=== PATIENT | male | born 1975 | race Caucasian/White ===

== ENCOUNTER 2018-06-25 11:06 | Inpatient (IN) | END 2018-07-01 12:25 | disposition home or self-care (01) | DRG 253 ==

== ENCOUNTER 2018-09-04 16:59 | Inpatient (IN) | payer OTHER ==
[~2018-09-04] VITALS: Ht 182.9 cm; Wt 100.5 kg
[~2018-09-04 16:59] MED LIST: AMIT50TA3 PO; CLOP75TA28 PO; CYAN500T46 PO; ENOX100D2 SC; FOLI-49 PO; HYDR-3601 PO; METO-429 PO; PRED10TA PO
[2018-09-04 17:06] VITALS: Ht 182.9 cm; Wt 100.5 kg
[2018-09-05] MEDS ORDERED: ONDANSETRON 4 MG INJ IV STA (00:49)
[2018-09-05] MEDS ORDERED: morphine 4 MG/ML VIAL IV STA (00:49)
[2018-09-05] MEDS ORDERED: METOPROLOL 50 MG TAB PO ONE (01:00)
--- NOTE | 2018-09-05 01:14 | ERD ---
ER Documentation Chief Complaint Chief Complaint sent by for ivc filter removal--needs to be admitted HPI This is a 43-year-old male was brought in by himself after he was sent in by his primary care physician for IVC filter removal. Patient denies any complaints. ROS All systems reviewed and are negative except as per history of present illness. Medications Home Meds Active Scripts Prednisone* (Prednisone*) 10 Mg Tab, 10 MG PO DAILY for 8 Days, #10 TAB Take 20mg for 2 days then 10mg for 3 days then 5 mg for 3 days then stop Prov:LUI NEGRON MD 06/30/18 Clopidogrel Bisulfate (Clopidogrel) 75 Mg Tablet, 75 MG PO DAILY for 30 Days, #30 TAB 10 Refills Prov:LUI NEGRON MD 06/30/18 Hydrocodone Bit-Acetaminophen (Hydrocodone Bit-APAP) 5-325MG Tablet, 2 TAB PO Q4H PRN for SEVERE PAIN LEVEL 7-10 for 7 Days, #30 TAB Prov:LUI NEGRON MD 06/30/18 Enoxaparin Sodium (Enoxaparin Sodium) 100 Mg/1 Ml Syringe, 100 MG SC Q12 for 30 Days, #60 SYR 6 Refills Prov:LUI NEGRON MD 06/30/18 Folic Acid* (Folic Acid*) 1 Mg Tablet, 1 MG PO DAILY for 30 Days, #30 TAB Prov:WAGNER SOTOAlber Krzysztof 05/08/18 Cyanocobalamin* (Vitamin B12*) 500 Mcg Tab, 1000 MCG PO DAILY for 30 Days, #30 T AB Prov:CHARLESWAGNERCox BransonKrzysztof 05/08/18 Metoprolol Tartrate* (Lopressor*) 50 Mg Tab, 50 MG PO BID for 30 Days, #60 TAB 2 Refills Prov:WAGNER SOTOAlber Krzysztof 05/08/18 Reported Medications Amitriptyline Hcl* (Amitriptyline Hcl*) 50 Mg Tablet, 50 MG PO QHS, #30 TAB 05/03/18 Allergies Allergies: Coded Allergies: No Known Allergy (Unverified , 05/03/18) PMhx/Soc History of Surgery: Yes (IVC filter placement) Anesthesia Reaction: No Hx Neurological Disorder: No Hx Respiratory Disorders: No Hx Cardiac Disorders: Yes (HTN) Hx Psychiatric Problems: No Hx Miscellaneous Medical Probl: Yes (DEPRESSION) Hx Alcohol Use: Yes (occasional drinker) Hx Substance Use: No Hx Tobacco Use: No Smoking Status: Never smoker Physical Exam Vitals Vital Signs Date Temp Pulse Resp B/P (MAP) Pulse Ox O2 O2 Flow FiO2 Time Delivery Rate 09/04/18 98.5 109 20 179/116 96 Room Air 19:48 (137) 09/04/18 98.6 108 18 158/117 96 17:06 (131) Physical Exam Const: No acute distress Head: Atraumatic Eyes: Normal Conjunctiva ENT: Normal External Ears, Nose and Mouth. Neck: Full range of motion. No meningismus. Resp: Clear to auscultation bilaterally Cardio: Regular rate and rhythm, no murmurs Abd: Soft, non tender, non distended. Normal bowel sounds Skin: No petechiae or rashes Back: No midline or flank tenderness Ext: No cyanosis, or edema Neur: Awake and alert Psych: Normal Mood and Affect Results 24 hrs Laboratory Tests Test 09/05/18 00:56 White Blood Count Pending Red Blood Count Pending Hemoglobin Pending Hematocrit Pending Mean Corpuscular Volume Pending Mean Corpuscular Hemoglobin Pending Mean Corpuscular Hemoglobin Concent Pending Red Cell Distribution Width Pending Platelet Count Pending Mean Platelet Volume Pending Current Medications Medications Dose Sig/Hussein Start Time Status Last (Trade) Ordered Route PRN Stop Time Admin Dose Reason Admin Morphine 4 mg ONCE STAT 09/05/18 DC Sulfate IV 00:49 09/05/18 (morphine) 00:50 Ondansetron 4 mg ONCE STAT 09/05/18 DC HCl (Zofran IV 00:49 09/05/18 Inj) 00:50 Metoprolol 50 mg ONCE ONCE 09/05/18 DC Tartrate PO 01:00 09/05/18 (Lopressor) 01:01 Procedures/MDM Medical decision making:: Patient is here essentially for IVC filter removal. He will be admitted to Dr. Walker for CT surgeon's request. Dr. Torres on- call for Dr. Walker made aware Departure Diagnosis: Primary Impression: Left leg DVT Affected thrombotic vein of extremity: unspecified vein of extremity Chronicity: unspecified Qualified Codes: I82.402 - Acute embolism and thrombosis of unspecified deep veins of left lower extremity Condition: MARIANN Branham Sep 05, 2018 01:14
[2018-09-05] MEDS ORDERED: IBUPROFEN 800 MG TAB ONE (01:21)
[2018-09-05] MEDS ORDERED: ENOX150D3 SQ ×2 (02:01→02:10)
[2018-09-05] MEDS ORDERED: THIA100T10 PO (02:10)
[2018-09-05 04:40] VITALS: BP 159/113; PULSE 75; RESP 20
[2018-09-05] MEDS ORDERED: DEXTROSE 5%-0.45% NACL 1,000 ML IV SCH (06:30)
[2018-09-05] MEDS: morphine SULFATE/PF (2 MG/2 ML) SYG IV PRN ×2 (06:56→11:15)
[2018-09-05] MEDS ORDERED: morphine SULFATE/PF (2 MG/2 ML) SYG IV PRN (07:00)
[2018-09-05 08:17] VITALS: BP 126/77; PULSE 83; RESP 18
--- NOTE | 2018-09-05 08:51 | HP ---
DATE OF ADMISSION: 09/05/2018 CHIEF COMPLAINT: Lower extremity deep vein thrombosis. HISTORY OF PRESENT ILLNESS: This is a 43-year-old male with past medical history of inherited thromb ophilia, history of deep venous thrombosis and pulmonary embolism, currently on lifelong anticoagulat ion, who presents to [facility] for IVC filter removal. The patient apparently arnulfo es in [place] and flew from [place] to [place] for evaluation by vascular surgeon, Dr. Orlando. The patient recently had a deep vein thrombosis and pulmonary embolism that necessitated a thrombecto my and IVC filter placement. This was done approximately 2 months ago. The patient now is presentin for removal of IVC filter. He currently denies any hemoptysis, hematemesis, or hematochezia. PAST MEDICAL HISTORY: The patient has a history of inherited thrombophilia, history of deep vein thr ombosis, history of pulmonary embolism. PAST SURGICAL HISTORY: Status post IVC filter placement, status post thrombectomy. FAMILY HISTORY: No family history of kidney disease. SOCIAL HISTORY: He does not drink, smoke or do drugs. MEDICATIONS: The patient's medications have been reviewed. REVIEW OF SYSTEMS: A 14-point review of systems conducted. Pertinent positives stated in history of present illness, otherwise negative. PHYSICAL EXAMINATION: VITAL SIGNS: Blood pressure is 126/77, respirations 18, pulse 83, temperature 98.0. HEENT: Head is normocephalic. Pupils are reactive to light. NECK: Supple. HEART: Regular rate. LUNGS: Show diminished breath sounds at the base. ABDOMEN: Soft. Positive umbilical hernia. No rebound or guarding. EXTREMITIES: Negative for clubbing, cyanosis. The patient's left lower extremity is mildly swollen, noted varicose veins. No edema. NEUROLOGIC: No focal deficits. LABORATORY DATA: Shows white count 9.4, hemoglobin 15.0, platelet count 293. Sodium 136, potassium 3.9, BUN 8, creatinine 0.66. AST, ALT is 178 and 182. ASSESSMENT AND PLAN: This is a 43-year-old male who presents with: 1. History of deep venous thrombosis and pulmonary embolism. The patient is status post IVC filter placement and recent thrombectomy. Plan is for evaluation with vascular surgery for IVC removal. We will continue to monitor. The patient is currently n.p.o. pending surgery. 2. Umbilical hernia. We will place a general surgery consult for evaluation. Continue to monitor. 3. Inherited thrombophilia. The patient is on lifelong anticoagulation of Lovenox 115 mEq twice sean ly. We will continue. 4. Hypertension. Continue Lopressor. 5. Chronic pain syndrome. Continue [place]. 6. Gastrointestinal and deep venous thrombosis prophylaxis. We will continue Lovenox and Pepcid. 7. Transaminitis, likely secondary to fatty liver. Continue to monitor. 8. Hypertension. Continue current blood pressure regimen. 9. Peripheral vascular disease with history of bypass surgery. Continue Plavix. Please note I spent additional 30 minutes of [id number] time discussing advance directives code sta tus. The patient is FULL CODE. Dictated By: [place] ALCALA DO NR/NTS Conf#: [id number] DID#: [id number] CC: GAYLE BUCKNER MD; NABIL BUCKNER DO;*EndCC*
[2018-09-05] MEDS: METOPROLOL 50 MG TAB PO SCH ×2 (09:00→15:50)
[2018-09-05] MEDS: CLOPIDOGREL 75 MG TAB PO SCH ×2 (09:00→15:54)
[2018-09-05] MEDS: CYANOCOBALAMIN 500 MCG TAB PO SCH (09:00)
[2018-09-05] MEDS ORDERED: ENOXAPARIN 80 MG/0.8 ML SYG SC SCH (09:00)
[2018-09-05] MEDS ORDERED: ENOXAPARIN 100 MG/ML SYG SC SCH (09:00)
[2018-09-05] MEDS ORDERED: predniSONE 10 MG TAB PO SCH (09:00)
[2018-09-05] MEDS: FOLIC ACID 1 MG TAB PO SCH (09:00)
[2018-09-05] MEDS: THIAMINE 100 MG TAB PO SCH (09:00)
--- NOTE | 2018-09-05 11:36 | CONS ---
Date/Time of Note Date/Time of Note DATE: 09/05/18 TIME: 10:58 Assessment/Plan Assessment/Plan Assessment/Plan 1. Umbilical and bilateral groin hernias: reducible but tender and frequently painful -surgical repair: discussed with patient and he is electing to have outpatient surgery- we will schedule -encourage weight loss -avoid activities that increase intra-abdominal pressure -consider abdominal binder 2. History of deep venous thrombosis and pulmonary embolism: s/p IVC filter placement and recent thrombectomy -vascular surgery eval for IVC removal 3. Inherited thrombophilia on lifelong anticoagulation of Lovenox 115 mEq twice daily -med management 4. Hypertension -med mgnt 5. Chronic pain syndrome -pain management 6. Transaminitis: recent us: Fatty change of the liver and Mild hepatomegaly -highly encourage weight loss -trend -consider hep panel 7. Peripheral vascular disease with history of bypass surgery -vascular optimization 8. Obesity: bmi: 30 -diet and exercise optimization -encourage weight loss Thank you. Patient seen and examined in collaboration with Dr. Nicolas Torres. Result Diagram: 09/05/18 0056 09/05/18 0056 Results 24hrs Laboratory Tests Test 09/05/18 00:56 09/05/18 03:10 White Blood Count 9.4 # Red Blood Count 4.04 L Hemoglobin 15.0 Hematocrit 43.2 Mean Corpuscular Volume 106.9 H Mean Corpuscular Hemoglobin 37.1 H Mean Corpuscular Hemoglobin Concent 34.7 Red Cell Distribution Width 16.7 H Platelet Count 293 Mean Platelet Volume 9.8 Immature Granulocytes % 3.400 H Neutrophils % 78.8 H Lymphocytes % 6.7 L Monocytes % 8.2 Eosinophils % 1.9 Basophils % 1.0 Nucleated Red Blood Cells % 0.0 Immature Granulocytes # 0.320 H Neutrophils # 7.5 Lymphocytes # 0.6 L Monocytes # 0.8 Eosinophils # 0.2 Basophils # 0.1 Nucleated Red Blood Cells # 0.0 Prothrombin Time 11.9 Prothrombin Time Ratio 0.9 INR International Normalized Ratio 0.87 Activated Partial Thromboplast Time 28.3 Sodium Level 136 Potassium Level 3.9 Chloride Level 96 L Carbon Dioxide Level 27 Anion Gap 13 Blood Urea Nitrogen 8 Creatinine 0.66 Est Glomerular Filtrat Rate mL/min > 60 Glucose Level 110 Calcium Level 8.9 Total Bilirubin 0.9 Direct Bilirubin 0.00 Indirect Bilirubin 0.9 Aspartate Amino Transf (AST/SGOT) 178 H Alanine Aminotransferase (ALT/SGPT) 182 H Alkaline Phosphatase 224 H Total Protein 7.7 Albumin 4.0 Globulin 3.70 H Albumin/Globulin Ratio 1.08 Lipase 162 Urine Color YELLOW Urine Clarity CLEAR Urine pH 6.0 Urine Specific Datil 1.005 Urine Ketones NEGATIVE Urine Nitrite NEGATIVE Urine Bilirubin NEGATIVE Urine Urobilinogen NEGATIVE Urine Leukocyte Esterase NEGATIVE Urine Hemoglobin NEGATIVE Urine Glucose NEGATIVE Urine Total Protein NEGATIVE Consultation Date/Type/Reason Admit Date/Time Sep 05, 2018 at 00:42 Date of Consultation: Sep 05, 2018 Type of Consult surgical Reason for Consultation umbilical hernia Requesting Provider: CASEY HYLTON MD Hx of Present Illness Juan R Wesley is a 43-year-old man with past medical history of inherited thrombophilia, deep venous thrombosis and pulmonary embolism, currently on lifelong anticoagulation, who presents to [facility] for IVC filter removal by Dr. Gold. He had recently flown in from out of [facility] for Vascular Surgeon evaluation and tx. He recently had a deep vein thrombosis and pulmonary embolism that necessitated a thrombectomy and IVC filter placement, approximately 2 months ago. He now presents for removal of IVC filter. He denies shortness of breath, cp, hemoptysis, hematemesis, or hematochezia, lower extremity pain, fevers, chills. He is also known to have an umbilical hernia. Umbilical hernia is reducible, however, the area is tender and frequently painful. He reports regular bowel function. General surgery was asked to evaluate. 12 point ros was performed and is negative except as stated in hpi. Past Medical History as above Medications Current Medications Dextrose/Sodium Chloride 1,000 ml @ 65 mls/hr [id number] IV Last administered on 09/05/18at 06:31; Admin Dose 65 MLS/HR; Start 09/05/18 at 06:30 Morphine Sulfate (morphine SULFATE (PF)) 2 mg Q4H PRN IV SEVERE PAIN LEVEL 7-10 Last administered on 09/05/18at 06:56; Admin Dose 2 MG; Start 09/05/18 at 07:00 Morphine Sulfate (morphine SULFATE (PF)) 2 mg Q4H PRN IV SEVERE PAIN LEVEL 7- 10; Start 09/05/18 at 07:00 Amitriptyline HCl (Elavil) 50 mg QHS PO ; Start 09/05/18 at 21:00 Cyanocobalamin (Vitamin B12) 1,000 mcg DAILY PO ; Start 09/05/18 at 09:00 Enoxaparin Sodium (Lovenox) 150 mg Q12 SC ; Start 09/05/18 at 09:00 Folic Acid (Folic Acid) 1 mg DAILY PO ; Start 09/05/18 at 09:00 Acetaminophen/ Hydrocodone Bitart ([place] (5/325)) 2 tab Q4H PRN PO SEVERE PAIN LEVEL 7-10; Start 09/05/18 at 09:00 Metoprolol Tartrate (Lopressor) 50 mg BID PO ; Start 09/05/18 at 09:00 Thiamine HCl (Vitamin B1) 100 mg DAILY PO ; Start 09/05/18 at 09:00 Clopidogrel Bisulfate (plaVIX) 75 mg DAILY PO ; Start 09/05/18 at 09:00 Allergies: Coded Allergies: No Known Allergy (Unverified , 05/03/18) Past Surgical History as above Past Surgical Hx: other Family History Significant Family History: no pertinent family hx Social History Alcohol Use: none Smoking Status: Never smoker Drug Use: none Exam/Review of Systems Vital Signs Vitals Vital Signs Date Temp Pulse Resp B/P (MAP) Pulse Ox O2 O2 Flow FiO2 Time Delivery Rate 09/05/18 98.0 83 18 126/77 94 Room Air 08:17 (93) Exam Constitutional: alert, oriented Psych: nl mood/affect; No anxiety Head: normocephalic, atraumatic Eyes: nl conjunctiva, EOMI, nl lids, nl sclera ENMT: nl external ears & nose, nl lips & teeth, mucosa pink and moist Neck: supple, non-tender; No jvd Respiratory: normal air movement; No congested cough, No labored breathing Cardiovascular: regular rate and rhythm, nl pulses; No edema Gastrointestinal: soft, other (umbilical hernia (easily reducible, tender, no periumbilical discoloration)) Genitourinary - Male: nl penis, nl scrotum, other (bilateral inguinal hernia) Musculoskeletal: nl extremities to inspection, nl gait and stance Extremities: normal pulses Neurological: nl mental status, nl speech, nl strength Skin: No rash or lesions Lymph: nl lymph nodes Medications Medications Current Medications Dextrose/Sodium Chloride 1,000 ml @ 65 mls/hr [id number] IV Last administered on 09/05/18at 06:31; Admin Dose 65 MLS/HR; Start 09/05/18 at 06:30 Morphine Sulfate (morphine SULFATE (PF)) 2 mg Q4H PRN IV SEVERE PAIN LEVEL 7-10 Last administered on 09/05/18at 06:56; Admin Dose 2 MG; Start 09/05/18 at 07:00 Morphine Sulfate (morphine SULFATE (PF)) 2 mg Q4H PRN IV SEVERE PAIN LEVEL 7- 10; Start 09/05/18 at 07:00 Amitriptyline HCl (Elavil) 50 mg QHS PO ; Start 09/05/18 at 21:00 Cyanocobalamin (Vitamin B12) 1,000 mcg DAILY PO ; Start 09/05/18 at 09:00 Enoxaparin Sodium (Lovenox) 150 mg Q12 SC ; Start 09/05/18 at 09:00 Folic Acid (Folic Acid) 1 mg DAILY PO ; Start 09/05/18 at 09:00 Acetaminophen/ Hydrocodone Bitart ([place] (5/325)) 2 tab Q4H PRN PO SEVERE PAIN LEVEL 7-10; Start 09/05/18 at 09:00 Metoprolol Tartrate (Lopressor) 50 mg BID PO ; Start 09/05/18 at 09:00 Thiamine HCl (Vitamin B1) 100 mg DAILY PO ; Start 09/05/18 at 09:00 Clopidogrel Bisulfate (plaVIX) 75 mg DAILY PO ; Start 09/05/18 at 09:00 SINDHU RICHARD NP Sep 05, 2018 11:15
[2018-09-05] MEDS ORDERED: MIDAZOLAM 1 MG/ML 2 ML INJ ONE (13:35)
[2018-09-05] MEDS ORDERED: HEPARIN 1000 UNITS/NS (A-LINE) 1,000 ML ONE (13:35)
[2018-09-05] MEDS ORDERED: FENTAnyl 50 MCG/ML VIAL ONE (13:35)
[2018-09-05] MEDS ORDERED: LIDOCAINE 1% (MDV) 20 ML INJ ONE (13:36)
--- NOTE | 2018-09-05 14:00 | OPR ---
Date/Time of Note Date/Time of Note DATE: 09/05/18 TIME: 13:58 Operative Report Procedure Date: Sep 05, 2018 Preoperative Diagnosis DVT status post IVC filter placement Postoperative Diagnosis Same Operation/Procedure Performed Removal of inferior vena cava filter Inferior venacavogram Catheter introduction to the inferior vena cava Interpositions revision of the inferior venacavogram Moderate sedation 1 hour Fluoroscopy Ultrasound guidance into the central vein Surgeon see signature line Skilled Nursing Case Manager no Anesthesia Type: MAC Estimated Blood Loss: minimal Transfusion none Specimen None Grafts/Implants none Complications none Procedure Description Patient was placed supine position prepped and draped in usual sterile fashion using ultrasound guidance access was gained the right internal jugular vein [employer] guidewire was advanced down into the superior vena cava and inferior vena cava the sheath was advanced over the guidewire and inferior venacavogram was done which showed no evidence of any clot around the filter which was at the level of L2 snare was applied into the sheath which grabbed the hook of the filter at the sheath was advanced over the filter which collapsed all the legs of the filter was removed in its entirety x-ray fluoroscopy of the abdomen and chest revealed no evidence of any retained parts of the filter all the legs of the filter but intact were intact upon inspection outside of the body appropriate dressings applied patient tolerated procedure well CASEY HYLTON MD Sep 05, 2018 14:00
[2018-09-05 14:36] VITALS: BP 157/101; PULSE 78; RESP 18
--- NOTE | 2018-09-05 14:55 | CONS ---
DATE OF ADMISSION: 09/05/2018 DATE OF CONSULTATION: REASON FOR CONSULTATION: DVT. HISTORY OF PRESENT ILLNESS: This is a 43-year-old male with a history of left lower extremity DVT, w ho underwent a femorofemoral bypass grafting for the venous drainage and placement of inferior vena c lalit filter. Subsequently, the patient is here for evaluation and removal of IVC filter. PAST MEDICAL HISTORY: Hypertension. PAST SURGICAL HISTORY: Multiple DVT procedures and thrombectomies. ALLERGIES: NONE. SOCIAL HISTORY: No smoking, drinking or drug use. MEDICATION LIST: Reviewed. PHYSICAL EXAMINATION: VITAL SIGNS: Blood pressure is 110/60, pulse is 80, respirations 18. CARDIOVASCULAR: Regular rate and rhythm. Normal S1, S2. No murmurs, gallops or rubs. LUNGS: Clear. ABDOMEN: Soft. EXTREMITIES: Warm. Left lower extremity has more swelling than the right and chronic venous congest ion signs. LABORATORY VALUES: Significant for a hemoglobin of 15, white count is 9.4, platelet count is 293. N ormal coagulation factors. IMPRESSION: Deep venous thrombosis, status post inferior vena cava filter placement. RECOMMENDATIONS: We will proceed with the removal of IVC filter. I discussed with the patient. All questions were answered. Dictated By: CASEY HYLTON MD FM/NTS Conf#: [id number] DID#: [id number] CC: NABIL BUCKNER DO; GAYLE BUCKNER MD;*[facility]*
[2018-09-05] MEDS: HYDROCODONE/APAP (5/325) TAB PO PRN ×2 (15:49→21:25)
[2018-09-05] MEDS: ENOXAPARIN 100 MG/ML SYG SC SCH (15:52)
[2018-09-05 20:32] VITALS: BP 148/91; PULSE 82; RESP 20
[2018-09-05] MEDS ORDERED: AMITRIPTYLINE 50 MG TAB PO SCH (21:00)
[2018-09-06] MEDS: ENOXAPARIN 100 MG/ML SYG SC SCH ×2 (00:52→08:27)
[2018-09-06] MEDS: METOPROLOL 50 MG TAB PO SCH ×2 (01:05→08:24)
[2018-09-06] MEDS: HYDROCODONE/APAP (5/325) TAB PO PRN (01:51)
[2018-09-06 02:22] VITALS: BP 140/85; PULSE 88; RESP 20
[2018-09-06 07:54] VITALS: BP 138/89; PULSE 79; RESP 18
[2018-09-06] MEDS: FOLIC ACID 1 MG TAB PO SCH (08:23)
[2018-09-06] MEDS: THIAMINE 100 MG TAB PO SCH (08:23)
[2018-09-06] MEDS: CYANOCOBALAMIN 500 MCG TAB PO SCH (08:23)
[2018-09-06] MEDS: CLOPIDOGREL 75 MG TAB PO SCH (08:23)
--- NOTE | 2018-09-06 09:19 | DS ---
DATE OF ADMISSION: 09/05/2018 DATE OF DISCHARGE: 09/06/2018 HOSPITAL COURSE: This is a 43-year-old male with a past medical history of inherited thrombophilia, history of DVT, pulmonary embolism who was admitted to [facility] for removal of IV C filter. The patient had IVC filter placed approximately 3 months ago for DVT. He lives in [place]. He flew out from [place] to [facility], was subsequently admitted. The patient wa s seen by Dr. Orlando and IVC filter removed without any complications. The patient also noted to have umbilical hernia, was seen by general surgery, Dr. Anshu Torres with expectation outpatient ifrah crawley for umbilical hernia repair. The patient otherwise has been stable during hospital course and there have been no episodes of chest pain, no nausea, vomiting, no shortness of breath. No bleeding . Currently at this time, the patient will be discharged home where he will follow up with Dr. Anshu branham, as outpatient for possible hernia repair. At the time of discharge, the patient is stable, in no acute distress. FINAL DIAGNOSES: 1. Inherited thrombophilia. 2. History of deep venous thrombosis and pulmonary embolism, status post IVC filter removal. 3. Umbilical hernia. 4. Hypertension. 5. Transaminitis secondary to fatty liver. 6. Peripheral vascular disease with history of bypass. 7. Chronic pain syndrome. Please note at time of discharge patient is stable, no acute distress. FINAL MEDICATIONS: The patient will continue home regimen of medications includin. Amitriptyline. 2. Plavix. 3. Vitamin B12. 4. Lovenox. 5. Folic acid. 6. Metoprolol 7. Thiamine. Please note I spent over 40 minutes time preparing the patient's discharge. Please note, the patient has all his medications. I will give the patient a prescription for Plavix 75 mg daily. Dictated By: IND[place] ALCALA DO NR/NTS Conf#: [id number] DID#: [id number] CC: NABIL TORRES DO;*EndCC*
--- NOTE | 2018-09-06 09:52 | PN ---
Date/Time of Note Date/Time of Note DATE: 09/06/18 TIME: 09:49 Assessment/Plan Lines/Catheters IV Catheter Type (from Nrsg): Peripheral IV Assessment/Plan Assessment/Plan 1. Umbilical and bilateral groin hernias: reducible but tender and frequently painful -surgical repair: discussed with patient and he is electing to have outpatient surgery- we will schedule> patient to follow-up with us outpatient -encourage weight loss -avoid activities that increase intra-abdominal pressure -consider abdominal binder 2. History of deep venous thrombosis and pulmonary embolism: s/p IVC filter placement and recent thrombectomy; status post IVC filter removal -vascular surgery follow-up 3. Inherited thrombophilia on lifelong anticoagulation of Lovenox 115 mEq twice daily -med management 4. Hypertension -med mgnt 5. Chronic pain syndrome -pain management 6. Transaminitis: recent us: Fatty change of the liver and Mild hepatomegaly -highly encourage weight loss -trend -consider hep panel 7. Peripheral vascular disease with history of bypass surgery -vascular optimization 8. Obesity: bmi: 30 -diet and exercise optimization -encourage weight loss Thank you. Patient seen and examined in collaboration with Dr. Nicolas Torres. Subjective 24 Hr Interval Summary Feels well. Status post IVC filter removal yesterday. No fevers, chills, sob, congested cough, cp, palpitations, johnson, dizziness, nausea, vomiting, diarrhea, dysuria. Exam/Review of Systems Vital Signs Vitals Vital Signs Date Temp Pulse Resp B/P (MAP) Pulse Ox O2 O2 Flow FiO2 Time Delivery Rate 09/06/18 97.7 79 18 138/89 93 07:54 (105) 09/05/18 Room Air 20:32 Intake and Output 09/05/18 09/05/18 09/06/18 1515:00 23:00 07:00 IntakeIntake Total 2050 ml 800 ml OutputOutput Total 1200 ml 800 ml BalanceBalance 850 ml 0 ml Exam Free Text/Dictation Constitutional: alert, oriented Psych: nl mood/affect; No anxiety Head: normocephalic, atraumatic Eyes: nl conjunctiva, EOMI, nl lids, nl sclera ENMT: nl external ears & nose, nl lips & teeth, mucosa pink and moist, right neck dressing dry and intact without noted bleeding Neck: supple, non-tender; No jvd Respiratory: normal air movement; No congested cough, No labored breathing Cardiovascular: regular rate and rhythm, nl pulses; No edema Gastrointestinal: soft, other (umbilical hernia (easily reducible, tender, no periumbilical discoloration)) Genitourinary - Male: nl penis, nl scrotum, other (bilateral inguinal hernia) Musculoskeletal: nl extremities to inspection, nl gait and stance Extremities: normal pulses Neurological: nl mental status, nl speech, nl strength Skin: No rash or lesions Lymph: nl lymph nodes Results Result Diagram: 09/05/18 0056 09/05/18 0056 SINDHU RICHARD NP Sep 06, 2018 09:52
[2018-09-06 14:00] VITALS: BP 148/88; PULSE 86; RESP 18
--- NOTE | 2018-09-06 17:52 | PN ---
Date/Time of Note Date/Time of Note DATE: 09/06/18 TIME: 17:52 Assessment/Plan Lines/Catheters IV Catheter Type (from Nrsg): Peripheral IV Assessment/Plan Assessment/Plan DVT SP removal of IVC Filter will resume anticoagulation and Plavix Subjective 24 Hr Interval Summary Constitutional: improved Pain Control: mild Exam/Review of Systems Vital Signs Vitals Vital Signs Date Temp Pulse Resp B/P (MAP) Pulse Ox O2 O2 Flow FiO2 Time Delivery Rate 09/06/18 98.7 86 18 148/88 95 14:00 (108) 09/05/18 Room Air 20:32 Intake and Output 09/05/18 09/05/18 09/06/18 1515:00 23:00 07:00 IntakeIntake Total 2050 ml 800 ml OutputOutput Total 1200 ml 800 ml BalanceBalance 850 ml 0 ml Exam Eyes: nl conjunctiva, EOMI, nl lids, nl sclera ENMT: nl external ears & nose, nl lips & teeth, nl nasal mucosa & septum, mucosa pink and moist Neck: supple, non-tender Respiratory: clear to auscultation, normal air movement Cardiovascular: regular rate and rhythm, nl pulses Gastrointestinal: soft, nl liver, spleen, non-tender Musculoskeletal: nl extremities to inspection, nl gait and stance Results Result Diagram: 09/05/18 0056 09/05/18 0056 CASEY HYLTON MD Sep 06, 2018 17:52
== END 2018-09-06 18:20 | disposition home or self-care (01) | DRG 949 ==
LOC: E/R 16:59 → MS1 09-05 00:42
PROVIDERS: ADMIT Internal Medicine Nephrology; ATTEND Internal Medicine Nephrology
PROC: 06PY3DZ Removal of Intraluminal Device from Lower Vein, Percutaneous Approach (ICD-10-PCS; principal; 2018-09-05 13:30)
DX: Z45.2 Encounter for adjustment and management of vascular access device (principal); D68.69 Other thrombophilia; Z86.718 Personal history of other venous thrombosis and embolism; Z79.01 Long term (current) use of anticoagulants; Z86.711 Personal history of pulmonary embolism; K42.9 Umbilical hernia without obstruction or gangrene; I10 Essential (primary) hypertension; G89.29 Other chronic pain; R74.0 Nonspecific elevation of levels of transaminase and lactic acid dehydrogenase [LDH]; I73.9 Peripheral vascular disease, unspecified; Z98.62 Peripheral vascular angioplasty status; E66.9 Obesity, unspecified; Z68.30 Body mass index [BMI] 30.0-30.9, adult
CPT/HCPCS: 36415; 80053; 81003; 83690; 85025; 85610; 85730; J1644; J1650; J2250; J2270; J2274; J2405; J3010; J7042

== ENCOUNTER 2018-10-30 22:13 | Inpatient (IN) | payer OTHER ==
[~2018-10-30] VITALS: Ht 185.4 cm; Wt 100.0 kg
[~2018-10-30 22:13] MED LIST changes: -ENOX100D2 SC; +ENOX150D3 SQ; -PRED10TA PO; +THIA100T10 PO
[2018-10-30 22:33] VITALS: Ht 185.4 cm; Wt 100.0 kg
[2018-10-31] MEDS ORDERED: HYDROmorphONE 2 MG/ML SYG IV STA ×2 (02:35→02:42)
[2018-10-31] MEDS ORDERED: ONDANSETRON 4 MG INJ IV STA (02:35)
[2018-10-31] MEDS ORDERED: HYDROmorphONE 0.5 MG/0.5 ML SYG IV STA (04:36)
--- NOTE | 2018-10-31 04:39 | ERD ---
ER Documentation Chief Complaint Chief Complaint left foot/lower leg pain, known dvt, advised by to go to er for eval HPI This is a 43-year-old male with left foot and lower leg pain. 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 Recently had IVC filter pulled. On therapeutic Plavix and Lovenox. Spoke to vascular surgeon told him he is having increased pain and was told to come in for evaluation. Denies any chest pain fe vers nausea vomiting palpitations. Denies any shortness of breath. ROS All systems reviewed and are negative except as per history of present illness. Medications Home Meds Active Scripts Clopidogrel Bisulfate (Clopidogrel) 75 Mg Tablet, 75 MG PO DAILY for 30 Days, #30 TAB 10 Refills Prov:LUI NEGRON MD 06/30/18 Hydrocodone Bit-Acetaminophen (Hydrocodone Bit-APAP) 5-325MG Tablet, 2 TAB PO Q4H PRN for SEVERE PAIN LEVEL 7-10 for 7 Days, #30 TAB Prov:LUI NEGRON MD 06/30/18 Folic Acid* (Folic Acid*) 1 Mg Tablet, 1 MG PO DAILY for 30 Days, #30 TAB Prov:NATASHA SOTO 05/08/18 Cyanocobalamin* (Vitamin B12*) 500 Mcg Tab, 1000 MCG PO DAILY for 30 Days, #30 TAB Prov:NATASHA SOTO 05/08/18 Metoprolol Tartrate* (Lopressor*) 50 Mg Tab, 50 MG PO BID for 30 Days, #60 TAB 2 Refills Prov:NATASHA SOTO 05/08/18 Reported Medications Thiamine* (Thiamine*) 100 Mg Tablet, 100 MG PO DAILY, TAB 09/05/18 Enoxaparin Sodium* (Enoxaparin Sodium*) 150 Mg/1 Ml Disp.syrin, 150 MG SQ Q12, SYR 09/05/18 Amitriptyline Hcl* (Amitriptyline Hcl*) 50 Mg Tablet, 50 MG PO QHS, #30 TAB 05/03/18 Allergies Allergies: Coded Allergies: No Known Allergy (Unverified , 05/03/18) PMhx/Soc History of Surgery: Yes (THROMBECTOMY, BYPASS) Anesthesia Reaction: No Hx Neurological Disorder: No Hx Respiratory Disorders: No Hx Cardiac Disorders: Yes (HTN) Hx Psychiatric Problems: No Hx Miscellaneous Medical Probl: Yes (LLE DVT- current, abd hernia) Hx Alcohol Use: Yes Hx Substance Use: No Hx Tobacco Use: No Smoking Status: Unknown if ever smoked Physical Exam Vitals Vital Signs Date Temp Pulse Resp B/P (MAP) Pulse Ox O2 O2 Flow FiO2 Time Delivery Rate 10/31/18 97.7 97 19 143/109 96 Room Air 04:35 (120) 10/31/18 99 28 147/106 97 Room Air 02:15 (120) 10/30/18 97.1 96 16 151/106 97 22:33 (121) Physical Exam Const: No acute distress Head: Atraumatic Eyes: Normal Conjunctiva ENT: Normal External Ears, Nose and Mouth. Neck: Full range of motion. No meningismus. Resp: Clear to auscultation bilaterally Cardio: Regular rate and rhythm, no murmurs Abd: Soft, non tender, non distended. Normal bowel sounds Skin: No petechiae or rashes Back: No midline or flank tenderness Ext: No cyanosis, or edema Neur: Awake and alert Psych: Normal Mood and Affect Result Diagram: 10/31/1821910/31/18 0220 Results 24 hrs Laboratory Tests Test 10/31/18 02:20 White Blood Count 4.2 10^3/ul Red Blood Count 4.62 10^6/ul Hemoglobin 16.1 g/dl Hematocrit 47.3 % Mean Corpuscular Volume 102.4 fl Mean Corpuscular Hemoglobin 34.8 pg Mean Corpuscular Hemoglobin Concent 34.0 g/dl Red Cell Distribution Width 16.7 % Platelet Count 246 10^3/UL Mean Platelet Volume 9.8 fl Immature Granulocytes % 1.200 % Neutrophils % 62.8 % Lymphocytes % 16.7 % Monocytes % 12.4 % Eosinophils % 5.2 % Basophils % 1.7 % Nucleated Red Blood Cells % 0.0 /100WBC Immature Granulocytes # 0.050 10^3/ul Neutrophils # 2.6 10^3/ul Lymphocytes # 0.7 10^3/ul Monocytes # 0.5 10^3/ul Eosinophils # 0.2 10^3/ul Basophils # 0.1 10^3/ul Nucleated Red Blood Cells # 0.0 10^3/ul Prothrombin Time 12.8 Sec Prothrombin Time Ratio 1.0 INR International Normalized Ratio 0.95 Activated Partial Thromboplast Time 29.2 Sec Sodium Level 141 mmol/L Potassium Level 3.6 mmol/L Chloride Level 103 mmol/L Carbon Dioxide Level 26 mmol/L Anion Gap 12 Blood Urea Nitrogen 5 mg/dl Creatinine 0.84 mg/dl Est Glomerular Filtrat Rate mL/min > 60 mL/min Glucose Level 93 mg/dl Calcium Level 9.0 mg/dl Total Bilirubin 0.9 mg/dl Direct Bilirubin 0.00 mg/dl Indirect Bilirubin 0.9 mg/dl Aspartate Amino Transf (AST/SGOT) 286 IU/L Alanine Aminotransferase (ALT/SGPT) 151 IU/L Alkaline Phosphatase 236 IU/L Troponin I < 0.012 ng/ml B-Type Natriuretic Peptide 25 PG/ML Total Protein 7.9 g/dl Albumin 4.3 g/dl Globulin 3.60 g/dl Albumin/Globulin Ratio 1.19 Current Medications Medications Dose Sig/Hussein Start Time Status Last (Trade) Ordered Route PRN Stop Time Admin Dose Reason Admin 2 mg ONCE STAT 10/31/18 DC Hydromorphone IV 02:35 10/31/18 HCl 02:43 (Dilaudid) Ondansetron 4 mg ONCE STAT 10/31/18 DC 10/31/18 HCl (Zofran IV 02:35 10/31/18 02:42 Inj) 02:36 1 mg ONCE STAT 10/31/18 DC 10/31/18 Hydromorphone IV 02:42 10/31/18 02:43 HCl 02:49 (Dilaudid) Procedures/MDM Emergency department course: Patient seen and evaluated triage was placed in bed from evaluation. Had a cardiac workup. Serial exams are stable. Given Di laudid for pain control. EKG: Rate/Rhythm: [Normal Sinus Rhythm] QRS, ST, T-waves: [No changes consistent w/ acute ischemia] Impression: [No evidence of ischemia or arrhythmia] Chest X-ray 1V Interpreted by me: Soft Tissue: No acute abnormal ities Bones: No acute abnormalities Mediastinum/Cardiac Silhouette/Lungs: [No acute abnormalities] Medical decision making: This 43-year-old male with recurrent worsening DVT despite being on therapeutic Lovenox and Plavix. Patient will be admitted to Dr. Walker who knows the patient well for further evaluation and management and vascular consultation Departure Diagnosis: Primary Impression: Left leg DVT Affected thrombotic vein of extremity: unspecified vein of extremity Chronicity: unspecified Qualified Codes: I82.402 - Acute embolism and thrombosis of unspecified deep veins of left lower extremity Additional Impression: PVD (peripheral vascular disease) Condition: Serious MARIANN KLINE Oct 31, 2018 04:39
[2018-10-31] MEDS ORDERED: HYDROmorphONE 2 MG/ML SYG IV SCH (04:49)
[2018-10-31 08:08] VITALS: BP 163/105; PULSE 92; RESP 18
[2018-10-31] MEDS: THIAMINE 100 MG TAB PO SCH (08:12)
[2018-10-31] MEDS: CLOPIDOGREL 75 MG TAB PO SCH (08:12)
[2018-10-31] MEDS: HYDROCODONE/APAP (5/325) TAB PO PRN ×4 (08:12→23:50)
[2018-10-31] MEDS: CYANOCOBALAMIN 500 MCG TAB PO SCH (08:13)
[2018-10-31] MEDS: FOLIC ACID 1 MG TAB PO SCH (08:13)
[2018-10-31] MEDS: METOPROLOL 50 MG TAB PO SCH ×2 (08:14→20:43)
--- NOTE | 2018-10-31 08:30 | HP ---
DATE OF ADMISSION: 10/31/2018 CHIEF COMPLAINT: Left lower leg pain and possible new deep vein thrombosis. HISTORY OF PRESENT ILLNESS: This is a 43-year-old male with a past medical history of inherited thro mbophilia, history of deep vein thrombosis, pulmonary embolism, currently on lifelong anticoagulation , who previously was admitted to in August of this year for IVC filter removal. The patient lives in [place] and has flown from [place] to the [facility] where he was under the care of Dr. Orlando, vascular surgeon. The patient in the past had a history of deep vein thr ombosis and pulmonary embolism necessitating thrombectomy and IVC filter placement. The patient then arrived 2 months ago for removal of IVC filter. Since that time, the patient has been stable, but s tates in the last week or 2 weeks ago, the patient was unable to receive his Lovenox on a timely murray er and missed 2 days of injection. The patient then state he did start developing severe left lower extremity pain and described what he describes is clots or phlebitis forming in the left lower extrem ity. The patient as a result came back to [facility] to be evaluated by Dr. Orlando. Upon arriva l to the emergency room, the patient received a lower extremity Doppler ultrasound, which showed posi tive DVT in the left femoral popliteal vein, no DVT in the right lower extremity. In the emergency r oom, the patient received pain medication and was admitted to med/surg for evaluation. There have be en no reports of hemoptysis, hematemesis or hematochezia. PAST MEDICAL HISTORY: As stated above, history of IVC filter placement, history of thrombectomy, his tory of inherited thrombophilia, history of DVT, history of pulmonary embolism. PAST SURGICAL HISTORY: Status post IVC filter placement, status post thrombectomy, status post stent placement. FAMILY HISTORY: No family history of kidney disease. SOCIAL HISTORY: He does not drink, smoke or do drugs. MEDICATIONS: The patient medications have been reviewed. REVIEW OF SYSTEMS: A 14-point review of systems was conducted. Pertinent positives stated in HPI, o therwise negative. PHYSICAL EXAMINATION: VITAL SIGNS: Blood pressure is 130/80, respirations 16, temperature 98.6, pulse 82. HEENT: Head is normocephalic. Pupils are reactive to light. NECK: Supple. HEART: Regular rate. LUNGS: Show diminished breath sounds at the base. ABDOMEN: Soft, nontender to palpation. Positive umbilical hernia. EXTREMITIES: Negative for clubbing, cyanosis. Positive tenderness to palpation left lower extremity , mild swelling. Noted varicose veins. No edema. NEUROLOGIC: No focal deficits. DERMATOLOGIC: No rashes. MUSCULOSKELETAL: No joint effusion. MEDICATIONS: The patient's medications have been reviewed. LABORATORY DATA: Shows white count 4.2, hemoglobin 16.1, platelet count 246. Sodium 141. BUN 5, cr eatinine 0.84, AST, ALT 286 and 154, alkaline phosphatase 236. IMAGING STUDIES: As stated in HPI. ASSESSMENT AND PLAN: This is a 43-year-old male who presents with: 1. Left lower extremity deep vein thrombosis, unclear if this is acute or chronic. The patient has a prior history of deep vein thrombosis and pulmonary embolism. The patient is status post IVC filte r placement and removal, status post thrombectomy. Plan at this point is to have a vascular surgery evaluation with Dr. Orlando. We will continue the patient on anticoagulation, Lovenox 150 subcutan eously b.i.d. Continue Plavix. Monitor closely. 2. Left lower extremity pain. Unclear if this is due to acute deep vein thrombosis. We will contin ue medical management as stated above. We will check a D-dimer. Continue pain control with Dilaudid . 3. Umbilical hernia. Continue to monitor. 4. Inherited thrombophilia. Continue Lovenox 150 mEq b.i.d. 5. Hypertension. Continue Lopressor. 6. Chronic pain syndrome. Continue current pain regimen. 7. Transaminitis, likely due to fatty liver. Continue to monitor LFTs. 8. Peripheral vascular disease with history of bypass. Continue medical management. Continue Plavi x. 9. Gastrointestinal and deep vein thrombosis prophylaxis. Continue Lovenox and Pepcid. Please note I spent additional 30 minutes of [id number] time discussing code status and advanced di rectives. The patient is FULL CODE. Dictated By: IND[place]NA ALCALA DO NR/NTS Conf#: [id number] DID#: [id number] CC: INDIANA ALCALA DO;*EndCC*
[2018-10-31] MEDS: FAMOTIDINE 20 MG TAB PO SCH ×2 (09:05→20:42)
[2018-10-31] MEDS: ENOXAPARIN 100 MG/ML SYG SC SCH ×2 (09:06→20:45)
[2018-10-31] MEDS: HYDROmorphONE 1 MG/ML SYG IV PRN ×3 (11:43→20:43)
--- NOTE | 2018-10-31 14:00 | CONS ---
Assessment/Plan Assessment/Plan Assessment/Plan (Daily) 3 of DVT and venous bypass We will continue anticoagulation at the present time Doppler studies to evaluate the bypass graft Consultation Date/Type/Reason Admit Date/Time Oct 31, 2018 at 04:35 Date of Consultation: Oct 31, 2018 Type of Consult Left lower extremity DVT Reason for Consultation Left lower extremity DVT Date/Time of Note DATE: 10/31/18 TIME: 13:58 Hx of Present Illness Is a patient known to me 43-year-old male with a chronic DVT left lower extr emity underwent a venous bypass surgery several months ago patient was doing well subsequently not receive his Lovenox shots and had pain in the left lower extremity currently being admitted for workup of left lower extremity DVT patient is currently being treated with anticoagulation Respiratory: no complaints Cardiovascular: no complaints Gastrointestinal: no complaints Genitourinary: no complaints Musculoskeletal: no complaints Skin: no complaints Neurologic: no complaints Past Medical History Home Meds Active Scripts Clopidogrel Bisulfate (Clopidogrel) 75 Mg Tablet, 75 MG PO DAILY for 30 Days, #30 TAB 10 Refills Prov:LUI NEGRON MD 06/30/18 Hydrocodone Bit-Acetaminophen (Hydrocodone Bit-APAP) 5-325MG Tablet, 2 TAB PO Q4H PRN for SEVERE PAIN LEVEL 7-10 for 7 Days, #30 TAB Prov:LUI NEGRON MD 06/30/18 Folic Acid* (Folic Acid*) 1 Mg Tablet, 1 MG PO DAILY for 30 Days, #30 TAB Prov:NATASHA SOTO 05/08/18 Cyanocobalamin* (Vitamin B12*) 500 Mcg Tab, 1000 MCG PO DAILY for 30 Days, #30 TAB Prov:NATASHA SOTO 05/08/18 Metoprolol Tartrate* (Lopressor*) 50 Mg Tab, 50 MG PO BID for 30 Days, #60 TAB 2 Refills Prov:NATASHA SOTO Krzysztof 05/08/18 Reported Medications Thiamine* (Thiamine*) 100 Mg Tablet, 100 MG PO DAILY, TAB 09/05/18 Enoxaparin Sodium* (Enoxaparin Sodium*) 150 Mg/1 Ml Disp.syrin, 150 MG SQ Q12, SYR 09/05/18 Amitriptyline Hcl* (Amitriptyline Hcl*) 50 Mg Tablet, 50 MG PO QHS, #30 TAB 05/03/18 Medications Current Medications Amitriptyline HCl (Elavil) 50 mg QHS PO ; Start 10/31/18 at 21:00 Clopidogrel Bisulfate (plaVIX) 75 mg DAILY PO Last administered on 10/31/18 08:12; Admin Dose 75 MG; Start 10/31/18 at 09:00 Cyanocobalamin (Vitamin B12) 1,000 mcg DAILY PO Last administered on 10/31/18 08:13; Admin Dose 1,000 MCG; Start 10/31/18 at 09:00 Enoxaparin Sodium (Lovenox) 150 mg Q12 SC Last administered on 10/31/18 09:06; Admin Dose 150 MG; Start 10/31/18 at 09:00 Folic Acid (Folic Acid) 1 mg DAILY PO Last administered on 10/31/18 08:13; Admin Dose 1 MG; Start 10/31/18 at 09:00 Acetaminophen/ Hydrocodone Bitart ([place] (5/325)) 2 tab Q4H PRN PO SEVERE PAIN LEVEL 7-10 Last administered on 10/31/18 08:12; Admin Dose 2 TAB; Start 10/31/18 at 07:00 Metoprolol Tartrate (Lopressor) 50 mg BID PO Last administered on 10/31/18 08:14; Admin Dose 50 MG; Start 10/31/18 at 09:00 Thiamine HCl (Vitamin B1) 100 mg DAILY PO Last administered on 10/31/18 08:12; Admin Dose 100 MG; Start 10/31/18 at 09:00 Miscellaneous Information Patients own medicat... BID@10,16 XX ; Start 10/31/18 at 10:00 Hydromorphone HCl (Dilaudid) 1 mg Q4H PRN IV SEVERE PAIN LEVEL 7-10 Last administered on 10/31/18at 11:43; Admin Dose 1 MG; Start 10/31/18 at 08:30 Famotidine (Pepcid) 20 mg BID PO Last administered on 10/31/18 09:05; Admin Dose 20 MG; Start 10/31/18 at 09:00 Allergies: Coded Allergies: No Known Allergy (Unverified , 10/31/18) Past Surgical History Past Surgical Hx: other Social History Smoking Status: Unknown if ever smoked Exam/Review of Systems Exam Vitals Vital Signs Date Temp Pulse Resp B/P (MAP) Pulse Ox O2 O2 Flow FiO2 Time Delivery Rate 10/31/18 98.0 92 18 163/105 92 08:08 (124) 10/31/18 Room Air 04:35 Eyes: nl conjunctiva, EOMI, nl lids, nl sclera, PERRL ENMT: nl external ears & nose, nl lips & teeth, nl nasal mucosa & septum Neck: supple, non-tender Respiratory: clear to auscultation, normal air movement Cardiovascular: regular rate and rhythm, nl pulses Gastrointestinal: soft, nl liver, spleen, non-tender Musculoskeletal: nl extremities to inspection, nl gait and stance Extremities: normal pulses Additional Comments Left leg warm to touch swollen no peripheral edema signs of chronic venous congestion Results Result Diagram: 10/31/1821910/31/18219 Results 24hrs Laboratory Tests Test 10/31/18 02:20 10/31/18 07:26 10/31/18 09:39 White Blood Count 4.2 #L Red Blood Count 4.62 L Hemoglobin 16.1 Hematocrit 47.3 Mean Corpuscular Volume 102.4 H Mean Corpuscular Hemoglobin 34.8 H Mean Corpuscular Hemoglobin Concent 34.0 Red Cell Distribution Width 16.7 H Platelet Count 246 Mean Platelet Volume 9.8 Immature Granulocytes % 1.200 H Neutrophils % 62.8 Lymphocytes % 16.7 Monocytes % 12.4 H Eosinophils % 5.2 Basophils % 1.7 Nucleated Red Blood Cells % 0.0 Immature Granulocytes # 0.050 H Neutrophils # 2.6 Lymphocytes # 0.7 L Monocytes # 0.5 Eosinophils # 0.2 Basophils # 0.1 Nucleated Red Blood Cells # 0.0 Prothrombin Time 12.8 Prothrombin Time Ratio 1.0 INR International Normalized Ratio 0.95 Activated Partial Thromboplast Time 29.2 Sodium Level 141 Potassium Level 3.6 Chloride Level 103 Carbon Dioxide Level 26 Anion Gap 12 Blood Urea Nitrogen 5 L Creatinine 0.84 Est Glomerular Filtrat Rate mL/min > 60 Glucose Level 93 Calcium Level 9.0 Total Bilirubin 0.9 Direct Bilirubin 0.00 Indirect Bilirubin 0.9 Aspartate Amino Transf (AST/SGOT) 286 H Alanine Aminotransferase (ALT/SGPT) 151 H Alkaline Phosphatase 236 H Troponin I < 0.012 < 0.012 B-Type Natriuretic Peptide 25 Total Protein 7.9 Albumin 4.3 Globulin 3.60 H Albumin/Globulin Ratio 1.19 Creatine Kinase 98 Creatine Kinase Index 0.8 Creatinine Kinase MB (Mass) 0.78 D-Dimer 259.32 D-Dimer Comment Medications Medication Current Medications Amitriptyline HCl (Elavil) 50 mg QHS PO ; Start 10/31/18 at 21:00 Clopidogrel Bisulfate (plaVIX) 75 mg DAILY PO Last administered on 10/31/18 08:12; Admin Dose 75 MG; Start 10/31/18 at 09:00 Cyanocobalamin (Vitamin B12) 1,000 mcg DAILY PO Last administered on 10/31/18 08:13; Admin Dose 1,000 MCG; Start 10/31/18 at 09:00 Enoxaparin Sodium (Lovenox) 150 mg Q12 SC Last administered on 10/31/18 09:06; Admin Dose 150 MG; Start 10/31/18 at 09:00 Folic Acid (Folic Acid) 1 mg DAILY PO Last administered on 10/31/18 08:13; Admin Dose 1 MG; Start 10/31/18 at 09:00 Acetaminophen/ Hydrocodone Bitart (Gra[place] (5/325)) 2 tab Q4H PRN PO SEVERE PAIN LEVEL 7-10 Last administered on 10/31/18 08:12; Admin Dose 2 TAB; Start 10/31/18 at 07:00 Metoprolol Tartrate (Lopressor) 50 mg BID PO Last administered on 10/31/18 08:14; Admin Dose 50 MG; Start 10/31/18 at 09:00 Thiamine HCl (Vitamin B1) 100 mg DAILY PO Last administered on 10/31/18 08:12; Admin Dose 100 MG; Start 10/31/18 at 09:00 Miscellaneous Information Patients own medicat... BID@ XX ; Start 10/31/18 at 10:00 Hydromorphone HCl (Dilaudid) 1 mg Q4H PRN IV SEVERE PAIN LEVEL 7-10 Last administered on 10/31/18 11:43; Admin Dose 1 MG; Start 10/31/18 at 08:30 Famotidine (Pepcid) 20 mg BID PO Last administered on 10/31/18 09:05; Admin Dose 20 MG; Start 10/31/18 at 09:00 CASEY HYLTON MD Oct 31, 2018 14:00
[2018-10-31 14:38] VITALS: BP 162/116; PULSE 83; RESP 19
[2018-10-31] MEDS: AMLODIPINE 10 MG TAB PO SCH (16:24)
[2018-10-31 19:47] VITALS: BP 164/110; PULSE 86; RESP 18
[2018-10-31] MEDS: AMITRIPTYLINE 50 MG TAB PO SCH (20:42)
[2018-11-01] MEDS: HYDROmorphONE 1 MG/ML SYG IV PRN ×3 (01:47→20:07)
[2018-11-01 02:13] VITALS: BP 145/86; PULSE 78; RESP 17
[2018-11-01] MEDS: HYDROCODONE/APAP (5/325) TAB PO PRN ×4 (05:12→23:10)
[2018-11-01 07:50] VITALS: BP 115/68; PULSE 78; RESP 18
[2018-11-01] MEDS: ENOXAPARIN 100 MG/ML SYG SC SCH ×3 (08:18→21:31)
[2018-11-01] MEDS: METOPROLOL 50 MG TAB PO SCH ×3 (08:18→21:24)
[2018-11-01] MEDS: CYANOCOBALAMIN 500 MCG TAB PO SCH ×2 (08:18→13:50)
[2018-11-01] MEDS: AMLODIPINE 10 MG TAB PO SCH ×2 (08:18→13:49)
[2018-11-01] MEDS: CLOPIDOGREL 75 MG TAB PO SCH ×2 (08:18→13:48)
[2018-11-01] MEDS: FOLIC ACID 1 MG TAB PO SCH ×2 (08:18→13:50)
[2018-11-01] MEDS: THIAMINE 100 MG TAB PO SCH ×2 (08:18→13:50)
[2018-11-01] MEDS: FAMOTIDINE 20 MG TAB PO SCH ×3 (08:18→21:24)
--- NOTE | 2018-11-01 09:55 | PN ---
DATE: 11/01/2018 SUBJECTIVE: The patient is stable. The patient's pain is still present. The patient is pending ang iogram. No other events noted. OBJECTIVE: VITAL SIGNS: Blood pressure is 115/68, respirations 18, pulse 78, temperature 98.1. HEENT: Head is normocephalic. NECK: Supple. HEART: Regular rate. LUNGS: Show diminished breath sounds at the base. ABDOMEN: Soft, nontender to palpation without rebound or guarding. EXTREMITIES: Negative for clubbing, cyanosis, no edema. DERMATOLOGIC: No rashes. MUSCULOSKELETAL: No joint effusion. NEUROLOGIC: No change in exam. MEDICATIONS: Reviewed. LABORATORY DATA: Reviewed. ASSESSMENT AND PLAN: 1. Left lower extremity deep vein thrombosis. Etiology is likely chronic, possible acute . The pat ient's D-dimer was within normal limits which is less likely to indicate an acute deep vein thrombosi s. However, the patient has currently been seen by vascular surgeon and is pending an angiogram. We will continue to monitor closely. Follow up with vascular surgery for further recommendations. Con tinue anticoagulation with Lovenox 150 mEq b.i.d. Continue Plavix. 2. Left lower extremity pain. Etiology is possibly due to deep vein thrombosis. Continue current m edical management. Continue pain control. 3. History of venous bypass. The patient is pending a Doppler study to evaluate bypass graft. Cont inue to monitor. Follow up with vascular surgery. 4. Umbilical hernia. Continue to monitor. 5. Inherited thrombophilia. Continue anticoagulation therapy. 6. Hypertension. Continue Lopressor and Norvasc. Continue pain control. 7. Chronic pain syndrome. Continue current pain regimen. 8. Transaminitis secondary due to fatty liver. Continue to monitor LFTs. 9. Gastrointestinal and deep vein thrombosis prophylaxis. Continue Lovenox and Pepcid. Dictated By: INDIANA ALCALA DO NR/NTS Conf#: [id number] DID#: [id number] CC: INDIANA ALCALA DO;*EndCC*
[2018-11-01] MEDS ORDERED: IODIXANOL LOCM 100 ML BTL ONE (12:46)
--- NOTE | 2018-11-01 12:59 | OPR ---
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 Anesthesia Type: other Estimated Blood Loss: none Transfusion none Specimen None Grafts/Implants none Complications none Disposition: PACU Procedure Description Patient was placed in supine position prepped and draped in usual sterile fashion timeout was called and IV was placed in the left foot left lower extremity venogram was performed interpositions revision of the venogram revealed left saphenous vein patent popliteal vein and femoral vein patent proximal femoral vein was occluded iliac veins were occluded however the venous bypass from the left to right femoral vein was patent with adequate flow going from the left lower extremity to the right lower extremity up in to the right common femoral vein right iliac vein and inferior vena cava patient tolerated procedure well end of dictation CASEY HYLTON MD Nov 01, 2018 12:59
[2018-11-01 14:40] VITALS: BP 136/95; PULSE 84; RESP 16
[2018-11-01 20:00] VITALS: BP 144/82; PULSE 75; RESP 19
[2018-11-01] MEDS: AMITRIPTYLINE 50 MG TAB PO SCH (21:24)
[2018-11-02 02:00] VITALS: BP 128/77; PULSE 71; RESP 18
[2018-11-02] MEDS: HYDROmorphONE 1 MG/ML SYG IV PRN (02:40)
[2018-11-02 07:25] VITALS: BP 135/100; PULSE 85; RESP 18
[2018-11-02] MEDS: CLOPIDOGREL 75 MG TAB PO SCH (08:10)
[2018-11-02] MEDS: CYANOCOBALAMIN 500 MCG TAB PO SCH (08:11)
[2018-11-02] MEDS: METOPROLOL 50 MG TAB PO SCH (08:11)
[2018-11-02] MEDS: THIAMINE 100 MG TAB PO SCH (08:11)
[2018-11-02] MEDS: FOLIC ACID 1 MG TAB PO SCH (08:12)
[2018-11-02] MEDS: AMLODIPINE 10 MG TAB PO SCH (08:12)
[2018-11-02] MEDS: HYDROCODONE/APAP (5/325) TAB PO PRN (08:12)
[2018-11-02] MEDS: FAMOTIDINE 20 MG TAB PO SCH (08:12)
[2018-11-02] MEDS: ENOXAPARIN 100 MG/ML SYG SC SCH (08:15)
--- NOTE | 2018-11-02 10:01 | DS ---
DATE OF ADMISSION: 10/31/2018 DATE OF DISCHARGE: 11/02/2018 HOSPITAL COURSE: This is a 43-year-old male with a past medical history of inherited thrombophilia, history of deep venous thrombosis, pulmonary embolism, currently on lifelong anticoagulation, who pre sents [facility] for evaluation of left leg pain. The patient has had multiple vis its to [facility] most recently in August for removal of IVC filter. The patient resides in [place], flew to [place] to be evaluated by Dr. Orlando after the patient missed 2 da ys of Lovenox therapy and experienced left leg pain. The patient is concerned of a new thrombus and/ or clotting of his femoral bypass graft. The patient upon arrival had a lower extremity ultrasound, which showed a DVT of his left leg. The patient was subsequently admitted to med/surg. In terms of patient's DVT etiology is likely chronic. The patient had a D-dimer, which was within normal limits, not consistent with acute DVT. The patient also had evaluation by Dr. Orlando, underwent angiogra m, which showed patent bypass graft. The patient clinically during hospital course has been stable. The patient's left lower extremity pain is stable and controlled with current pain regimen. Current ly, at this time, the patient will be discharged home, where he will follow up with his primary care physician and pain management doctor for pain control. At the time of discharge, patient is stable, no acute distress. FINAL DIAGNOSES: 1. Left lower extremity pain. The patient is status post angiogram with a patent femoral venous byp ass graft. 2. Left lower extremity deep venous thrombosis with a history of a afcjvhp-ad-tqsckih venous bypass with patent graft. 3. Left lower extremity pain. 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 Continue pain control. 4. History of umbilical hernia. 5. Inherited thrombophilia. The patient is on lifelong anticoagulation. 6. Hypertension. 7. Transaminitis due to fatty liver. FINAL MEDICATIONS: 1. The patient will be discharged on his home regimen of Plavix 75 mg daily. 2. Lovenox 50 mg subcutaneously b.i.d. 3. Folic acid. 4. Peterman. 5. Metoprolol. 6. Thiamine. 7. Amitriptyline. 8. The patient also be discharged on Norvasc 10 mg daily. Please note I spent over 30 minutes of time preparing patient's discharge. CONDITION ON DISCHARGE: At the time of discharge, the patient is stable, no acute distress. Dictated By: INDIANA ALCALA DO NR/ROSIBEL Conf#: [id number] DID#: [id number] CC: INDIANA ALCALA DO;*EndCC*
== END 2018-11-02 12:00 | disposition home or self-care (01) | DRG 300 ==
LOC: E/R 22:13 → PP2 10-31 04:35
PROVIDERS: ADMIT Internal Medicine; ATTEND Internal Medicine
PROC: B51CYZZ Fluoroscopy of Left Lower Extremity Veins using Other Contrast (ICD-10-PCS; principal; 2018-11-01 13:00)
DX: I82.502 Chronic embolism and thrombosis of unspecified deep veins of left lower extremity (principal); D68.59 Other primary thrombophilia; I87.002 Postthrombotic syndrome without complications of left lower extremity; G89.4 Chronic pain syndrome; M79.605 Pain in left leg; K76.0 Fatty (change of) liver, not elsewhere classified; K42.9 Umbilical hernia without obstruction or gangrene; Z86.711 Personal history of pulmonary embolism; Z95.828 Presence of other vascular implants and grafts; Z79.01 Long term (current) use of anticoagulants
CPT/HCPCS: 36415; 71045; 75820; 80048; 80053; 82550; 82553; 83735; 83880; 84100; 84484; 85025; 85378; 85610; 85730; 90686; 93005; 93970; 96374; 96375; J1170; J1644; J1650; J2405; Q9967